=== PATIENT | male | born 1995 | race Caucasian/White ===

== ENCOUNTER 2019-11-20 17:55 | Emergency (ER) | payer OTHER ==
[~2019-11-20] VITALS: Ht 182.9 cm; Wt 105.5 kg
[2019-11-20] MEDS ORDERED: hydrOXYzine 50 MG TAB PO ONE (19:00)
[2019-11-20] MEDS ORDERED: GI COCKTAIL 50ML BTL(HYOSCYAMINE/MAALOX/LIDOCAINE VISCOUS)(1:3:1) PO ONE (19:45)
[2019-11-20] MEDS ORDERED: SUCRALFATE 1 GM TAB PO ONE (19:45)
[2019-11-20 20:26] LABS: BASO # 0.1 10^3/uL (0.0-0.2); BASO % 0.5 % (0.0-1.0); EOS % 0.2 % (0.0-3.0); HEMATOCRIT 47.7 % (42.0-52.0); HEMOGLOBIN 16.7 g/dl (13.5-17.5); LYMPH % 16.8 % (24.0-44.0); MEAN CORPUSCULAR HEMOGLOBIN 30.9 pg (27.0-33.0); MEAN CORPUSCULAR VOLUME 88.3 fl (80.0-96.0); MONO # 0.9 10^3/uL (0.0-0.8); MONO % 7.9 % (0.0-5.0); NEUTROPHILS # 8.8 10^3/uL (1.5-8.5); NEUTROPHILS % 74.3 % (36.0-66.0); PLATELET COUNT, AUTOMATED 252 10^3/uL (150-450); WHITE BLOOD COUNT 11.8 10^3/uL (4.0-10.0)
[2019-11-20 20:49] LABS: ALBUMIN 4.6 GM/DL (3.2-5.2); ALT/SGPT 33 U/L (12-78); BILIRUBIN,DIRECT 0.5 MG/DL (0.0-0.2); BILIRUBIN,TOTAL 1.5 MG/DL (0.2-1.0); BLOOD UREA NITROGEN 12 MG/DL (7-18); CALCIUM LEVEL 9.5 MG/DL (8.5-10.1); CARBON DIOXIDE LEVEL 25 MEQ/L (21-32); CHLORIDE LEVEL 97 MEQ/L (98-107); CREATININE FOR GFR 1.21 MG/DL (0.70-1.30); GLOMERULAR FILTRATION RATE > 60.0 (>60); GLUCOSE, FASTING 96 MG/DL (70-100); LIPASE 60 U/L (73-393); POTASSIUM SERUM 3.8 MEQ/L (3.5-5.1); SODIUM LEVEL 133 MEQ/L (136-145); TOTAL PROTEIN 8.4 GM/DL (6.4-8.2)
--- NOTE | 2019-11-20 21:00 | REPVR ---
PROCEDURE INFORMATION: Exam: US Abdomen Limited, Right Upper Quadrant Exam date and time: 11/20/2019 8:09 PM Age: 24 years old Clinical indication: Abdominal pain; Epigastric; Additional info: Upper abdominal pain; R/O pancreatitis TECHNIQUE: Imaging protocol: Real-time ultrasound of the abdomen with image documentation. Examination was focused on the right upper quadrant. COMPARISON: No relevant prior studies available. FINDINGS: Liver: Heterogeneously echogenic liver suggesting hepatic steatosis. No liver masses. Gallbladder: Normal. No gallstones. There is no gallbladder wall thickening. Common bile duct: Normal. No stones. No dilation. Pancreas: Visualized pancreas is unremarkable. Right kidney: Normal. No mass. No hydronephrosis. IMPRESSION: 1. Hepatic steatosis. 2. No acute findings. Electronically signed by: Ronni Alonso On 11/20/2019 20:59:52 PM
[2019-11-20] MEDS ORDERED: HYDR-3363 PO (21:41)
[2019-11-20] MEDS ORDERED: CARA1TAB6 PO (21:41)
[2019-11-20] MEDS ORDERED: PRIL20TA2 PO (21:41)
[2019-11-20 22:07] VITALS: BP 151/88
--- NOTE | 2019-11-21 14:55 | ECGEPIP ---
[facility] - ED Test Date: 2019-11-20 Pat Name: MONTSE BARNES Department: Room: - Gender: Male Director [employer]: MERON : 1995 Requested By: Asad Carrasco Order Number: [id number] Reading MD: Jaskaran Gold Measurements Intervals [place] Rate: 109 P: 52 SD: 124 QRS: 180 QRSD: 100 T: 34 QT: 323 QTc: 436 Interpretive Statements SINUS TACHYCARDIA Delayed anterior R wave progression Comparison tracing not on file Electronically Signed on 11-21-2019 14:55:22 EST by Jaskaran Gold
== END 2019-11-20 22:08 | disposition home or self-care (01) ==
LOC: M ED 17:55
DX: F41.1 Generalized anxiety disorder (principal); K29.70 Gastritis, unspecified, without bleeding; R00.0 Tachycardia, unspecified; K76.0 Fatty (change of) liver, not elsewhere classified